=== PATIENT | female | born 1995 | race Two or more races ===

== ENCOUNTER 2025-04-12 19:58 | Inpatient (IN) ==
[2025-04-12] MEDS ORDERED: hydrALAZINE INJ 20 MG/ML VIAL IVP PRN (20:08)
[2025-04-12] MEDS ORDERED: DOCUSATE SODIUM 100 MG CAPSULE PO PRN (20:08)
[2025-04-12] MEDS ORDERED: SODIUM CHLORIDE FLUSH 0.9% 10 ML SYRINGE IVP PRN (20:08)
[2025-04-12] MEDS ORDERED: METOCLOPRAMIDE 10 MG TABLET PO PRN (20:08)
[2025-04-12] MEDS ORDERED: CARBOPROST TROMETHAMINE 250 MCG/ML VIAL IM PRN (20:08)
[2025-04-12] MEDS ORDERED: CALCIUM CARBONATE CHEW 500 MG TABLET PO PRN (20:08)
[2025-04-12] MEDS ORDERED: TERBUTALINE 1 MG/ML VIAL SUBQ PRN (20:08)
[2025-04-12] MEDS ORDERED: fentaNYL 100 MCG/2 ML VIAL IVP PRN (20:08)
[2025-04-12] MEDS ORDERED: OXYTOCIN 10 UNIT/ML VIAL IM PRN (20:08)
[2025-04-12] MEDS ORDERED: LABETALOL 20 MG/4 ML SYRINGE IVP PRN ×3 (20:08)
[2025-04-12] MEDS ORDERED: ACETAMINOPHEN 500 MG TABLET PO PRN ×2 (20:08)
--- NOTE | 2025-04-12 20:14 | HISTORY & PHYSICAL EXAMINATION ---
Admit History Smoking Status: Never smoker Other Maternal History Other Maternal History: HPI: This 29yo @ 38+3 weeks by LMP and confirmed by 13 week ultrasound presents to L&D for scheduled medical induction of labor for gestational hypertension. SVE upon admission /-2, intact, midposition, soft. Guajardo score, 8. Reviewed that risks of labor include but are not limited to section, prolonged labor, vacuum extraction, episotomy, hemorrhage, and additional risks exist re: prolonged second stage related to extraction. Reviewed back up OBGYN is available for consultations, emergency interventions and transfer of care if indicted. She has been a patient of [facility] for the duration of her . has been complicated by the third trimester onset of gestational hypertension as above as well as mild anemia improved with oral iron intake. ROS: No Headache, visual changes or right upper quadrant abdominal pain. Denies significant N/V. Denies urinary urgency or dysuria. All other symptoms reviewed and were negative except per HPI. In the event of an emergency, accepts the administration of blood products. Recent BP: 139/42 Labs: pending. Last u/s EFW: 83.7% @ FAS Total maternal weight gain: 37# In the event of an emergency, DOES ACCEPT the administration of blood products OB hx: G1: 05/23/2022; F@ 41 weeks. 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 [place] Family Hx: alcoholism, FOB (Scooter) has family hx of prader- Willi and other genetic conditions. Allergies:latex Medications: PNV, ASA LMP:07/17/24 KEVIN by LMP: 04/23/25 U/S: 10/12/2024 @ 13+2 c/w LMP Final KEVIN: 04/23/2025 Pre- weight:151 BMI: 24.3 Blood type: O NEG Rhogam at 28 wks Antibody screen: CBC:H/H/PLT- 12.8/37.5/350 Rubella:immune VZV:immune HBsAg: Negative HepC: NR RPR/AB-EIA: NR HIV:NR Flu: COVID: PAP: Obtain at 6wk PP GC/CT: Negative HSV: denies in self and partner Genetic Testing: [employer] Negative- it's A boy AFP: Ordered 11/27/2024 FAS: Placenta:anterior w/o previa Cord: 3VC XIOMY:16.6cm wnl EFW: 654g, 83.7%ile 50gm GCT: 78 TDAP: 02/06/2025 Breast Pump: has 2nd antibody screen:negative Rhogam: 02/06/2025 3rd trimester H/H PLT 10.8/33.0/255 GBS:negative Delivery plan: May consider an epidural. Physical exam: Abdomen gravid, soft, nontender. EFW 3700 FHR baseline 135, moderate variability, + accelerations, no decelerations Contractions irregular and non-painful with soft resting tone SVE 4/70/-2, vertex, intact membranes Bilateral LE's trace edema Mood is good. Assessment: 29 yo @ 38+3 weeks gestation by 13 wk U/S Medical induction of labor for gestational hypertension FHR 135 Cat I GBS NEG Plan: Admit to [facility] for MEDICAL induction of labor for gestational hypertension at term Will begin with membrane sweep followed by 25mcg misoprostol . Consulted on-call OBGYN and reviewed plan of care for induction. BP q 2 hours while awake and q 4 hours while sleeping until onset of active labor Desires unmedicated labor, discussed that if BPs are nearing severe range an epidural will be recommended, she is agreeable. Continuous monitoring Nitrous per request Epidural PRN Maternal Request. Anticipate . Meds/Allgy Home Medications Ambulatory Orders Medication Instructions Recorded Confirmed vits no.126-ferrous fum tab PO 09/14/2404/06 28 mg iron-folic acid 800 mcg tablet (Classic ) aspirin 81 mg tablet,delayed 81 mg PO QDAY 11/27/24 release (Adult Aspirin Regimen) ferrous sulfate 325 mg (65 mg 325 mg PO BID #90 tabs 0 02/05/25 04/06/25 iron) tablet breast pump #1 ea 03/21/25 04/06/25 breast pump #1 ea 03/21/25 04/06/25 blood pressure monitor #1 ea 04/06/25 04/06/25 Allergies Allergies Allergy/AdvReac Type Severity Reaction Status Date / Time Latex, Natural Rubber Allergy Mild Itching Verified 04/06/25 14:17 PFS Active Problems All Active Problems (Updated 04/12/25 @ 20:12 by SAGRARIO Loredo) 38 weeks gestation of (Acute) Gestational hypertension affecting second (Acute) screening for streptococcus B (Acute) History of induced hypertension (Acute) Elevated blood pressure reading in office without diagnosis of hypertension (Acute) Supervision of normal (Acute) Positive test (Acute) Surgical History Surgical History (Updated 09/14/24 @ 10:45 by Lani Fishman RN) H/O colposcopy with cervical biopsy Family History Family History (Updated 09/14/24 @ 10:46 by Lani Fishman RN) Father Alcoholism Uncle Alcoholism Mother High blood pressure Social History Social History (Updated 04/07/25 @ 12:19 by Allyn Alvarado CNM, SAGRARIO) Smoking Status: Never smoker Second hand tobacco smoke exposure: Yes Do you vape?: No Substance Use: cannabis (any form) Substance Use Details: stopped for Plan for Labor Plan For Labor I expect patient to be DC'd or transferred within 96 hours.: Yes Conclusion/Plan Problem List (1) History of induced hypertension: (2) Gestational hypertension affecting second : (3) 38 weeks gestation of :
[2025-04-12] MEDS ORDERED: SODIUM CHLORIDE FLUSH 0.9% 10 ML SYRINGE IVP SCH (21:00)
[2025-04-12 21:18] LABS: HCT - HEMATOCRIT 33.7 % (37.0-47.0); HGB - HEMOGLOBIN 11.6 g/dL (12.0-16.0); MEAN PLATELET VOLUME 10.4 fL (7.9-10.8); NRBC ABSOLUTE COUNT (AUTO) 0.00 x10^3/uL; NUCLEATED RED BLOOD CELLS AUTO 0.0 /100WBC; PLT - PLATELET COUNT 238 10^3/uL (130-450); RED CELL DISTRIBUTION WIDTH 12.9 % (12.0-15.0)
[2025-04-12 21:38] LABS: ALT ALANINE AMINOTRANSFERASE 13.0 IU/L (10-60); AST ASPARTATE AMINOTRANSFERASE 14.0 IU/L (10-42); BUN - BLOOD UREA NITROGEN 13.0 mg/dL (6-20); CARBON DIOXIDE - CO2 22.0 mmol/L (21-32); CREATININE 0.7 mg/dL (0.6-1.3); GFR - MDRD 98.0 (>89)
[2025-04-12 21:44] LABS: TOTAL PROTEIN,URINE TIMED 16.0 mg/dL
--- NOTE | 2025-04-13 06:42 | PROVIDER PROGRESS NOTE ---
Subjective Subjective Subjective: S: Has slept through most of the night. Not feeling pain with contractions. Supportive , Scooter sleeping in the room with her. No complaints overnight of headaches, changes to vision or RUQ pain. Denies any significant edema. Feels well informed. O: FHR baseline 135, moderate variability, + accels, - decels. Overall reassuring with moderate variability maintained throughout. SVE deferred as patient sleeping through contractions. SVE on admission 3.5/70/- 2 S/p 2 doses 25mcg BC misoprostol Contractions q2-3 minutes. Serum labs on admission unremarkable. A: 29yo @ 38+4 wks gestation Medical IOL for gestational hypertension FHR Category I GBS neg O negative Admission labs 04/13/2025: Urine MTP 0.2 (04/09/2025 - TNP) Serum creatinine 0.7 (04/09/25 - 0.6) AST: 14 (04/09/2025: 16) ALT: 13 (04/09/2025: 12) H&H: 11.6/33.7, PLT 238 (04/09/2025 - 11.4/34.4, PLT 239) Antibody positive, anti-D likely from rhogam administration P: Repeat cervical exam later this morning after patient wakes to further develop induction plan of care Hold misoprostol x 1-2 hours given regular contraction pattern. Consider AROM if appropriate Pain management per patient request Patient agreeable and desires epidural if blood pressures nearing severe range with unmedicated labor. Repeat serum lab work q 24 hours, sooner with severe features. Continuous monitoring. Induction plan reviewed with on-call OBGYN last night. Will plan to update incoming OBGYN following physician call overage change this morning. Anticipate . Current Medications Current Medications Current Medications: Current Medications Generic Name Dose Route Start Last Admin Trade Name Freq PRN Reason Stop Dose Admin Acetaminophen 1,000 mg 04/12/25 20:08 Acetaminophen 500 Mg Tablet PO Q8H PRN Mild Pain or Fever>38C(100.4F) Acetaminophen 1,000 mg 04/12/25 20:08 Acetaminophen 500 Mg Tablet PO Q8HR PRN Mild Pain or Fever>38C(100.4F) Calcium Carbonate/Glycine 1,000 mg 04/12/25 20:08 Calcium Carbonate Chew 500 Mg Tablet PO Q6HR PRN Heartburn Carboprost Tromethamine 250 mcg 04/12/25 20:08 Carboprost Tromethamine 250 Mcg/Ml Vial IM .ONCE PRN Hemorrhage Diphenhydramine HCl 25 mg 04/12/25 20:08 Diphenhydramine Inj 50 Mg/Ml Vial IVP Q6H PRN Allergy Symptoms Docusate Sodium 200 mg 04/12/25 20:08 Docusate Sodium 100 Mg Capsule PO BID PRN Constipation Fentanyl 50 mcg 04/12/25 20:08 Fentanyl 100 Mcg/2 Ml Vial IVP Q1H PRN Severe Pain (score 7-10) Hydralazine HCl 5 - 10 mg 04/12/25 20:08 Hydralazine Inj 20 Mg/Ml Vial IVP Q20M PRN SBP> or= 160 OR DBP> or= 110 Protocol Lactated Ringer's 500 mls @ 999 mls/hr 04/12/25 20:08 Lr IV PRN PRN PER PHYSICIAN ORDER Oxytocin/Sodium Chloride 500 mls @ 999 mls/hr 04/12/25 20:08 Pitocin/Sodium Chloride IV PRN PRN POST- HEMORR PREVENTION Protocol 999 MILLIUNIT/MIN Tranexamic Acid 1,000 mg in 100 mls @ 600 mls/hr 04/12/25 20:08 Tranexamic 1,000 Mg/100ml-Nacl IV Q30M PRN EBL >1200mL and within 3hr Labetalol HCl 20 mg 04/12/25 20:08 Labetalol 20 Mg/4 Ml Syringe IVP .ONCE PRN SBP> or= 160 OR DBP> or= 110 Protocol Labetalol HCl 20 - 80 mg 04/12/25 20:08 Labetalol 20 Mg/4 Ml Syringe IVP Q10M PRN SBP> or= 160 OR DBP> or= 110 Protocol Labetalol HCl 20 - 40 mg 04/12/25 20:08 Labetalol 20 Mg/4 Ml Syringe IVP Q10M PRN SBP> or= 160 OR DBP> or= 110 Protocol Lidocaine HCl 20 ml 04/12/25 20:08 Lidocaine 1% 20 Ml Mdv ID 04/15/25 20:09 .ONCE PRN PERINEAL REPAIR Metoclopramide HCl 5 mg 04/12/25 20:08 Metoclopramide 10 Mg Tablet PO Q6HR PRN Nausea / Vomiting Misoprostol 600 mcg 04/12/25 20:08 Misoprostol 200 Mcg Tablet BC .ONCE PRN Hemorrhage Misoprostol 800 mcg 04/12/25 20:08 Misoprostol 200 Mcg Tablet WI .ONCE PRN Hemorrhage Misoprostol 25 mcg 04/12/25 21:00 04/13/25 01:54 Misoprostol 100 Mcg Tablet BC 25 mcg Q4H MARINO Administration Nifedipine 10 - 20 mg 04/12/25 20:08 Nifedipine 10 Mg Capsule PO Q20M PRN SBP> or= 160 OR DBP> or= 110 Protocol Ondansetron HCl 4 mg 04/12/25 20:08 Ondansetron Odt 4 Mg Tablet PO Q4HR PRN Nausea / Vomiting Oxytocin 10 unit 04/12/25 20:08 Oxytocin 10 Unit/Ml Vial IM .ONCE PRN Step One if no IV access. Sodium Chloride 10 ml 04/12/25 21:00 Sodium Chloride Flush 0.9% 10 Ml Syringe IVP Q8H MARINO Sodium Chloride 10 ml 04/12/25 20:08 Sodium Chloride Flush 0.9% 10 Ml Syringe IVP PRN PRN NEEDED PER PROVIDER ORDERS Terbutaline Sulfate 0.25 mg 04/12/25 20:08 Terbutaline 1 Mg/Ml Vial SUBQ .ONCE PRN Tachystole Objective Lab Results 04/12/25 20:40 04/12/25 20:40 Other Labs: Lab Results x24hrs 04/12/25 04/12/25 Range/Units 20:50 20:40 WBC 9.6 (4.8-10.8) x10^3/uL RBC 3.77 L (4.20-5.40) 10^6/uL Hgb 11.6 L (12.0-16.0) g/dL Hct 33.7 L (37.0-47.0) % MCV 89.4 (81.0-99.0) fL MCH 30.8 (27.0-31.0) pg MCHC 34.4 (32.0-36.0) g/dL RDW 12.9 (12.0-15.0) % Plt Count 238 (130-450) 10^3/uL MPV 10.4 (7.9-10.8) fL Neut # (Auto) 6.5 (1.5-6.6) 10^3/uL Lymph # (Auto) 2.1 (1.5-3.5) 10^3/uL [place] # (Auto) 0.9 (0.0-1.0) 10^3/uL Eos # (Auto) 0.1 (0.0-0.7) 10^3/uL Baso # (Auto) 0.0 (0.0-0.1) 10^3/uL Absolute Nucleated RBC 0.00 x10^3/uL Nucleated RBC % 0.0 /100WBC Sodium 135 (135-145) mmol/L Potassium 4.0 (3.5-4.5) mmol/L Chloride 105 (101-111) mmol/L Carbon Dioxide 22 (21-32) mmol/L Anion Gap 8.0 (6-13) BUN 13 (6-20) mg/dL Creatinine 0.7 (0.6-1.3) mg/dL Estimated GFR (MDRD) 98 (>89) Glucose 86 (74-104) mg/dL Calcium 8.8 (8.5-10.3) mg/dL Total Bilirubin 0.3 (0.2-1.0) mg/dL AST 14 (10-42) IU/L ALT 13 (10-60) IU/L Alkaline Phosphatase 107 (42-121) IU/L Total Protein 6.5 (6.4-8.9) g/dL Albumin 3.5 (3.2-5.5) g/dL Globulin 3.0 (2.1-4.2) g/dL Albumin/Globulin Ratio 1.2 (1.0-2.2) Urine Creatinine 99.2 mg/dL Ur Total Protein Timed 16 mg/dL Protein/Creatinin Ratio 0.2 (<=0.2) Blood Type O NEGATIVE Antibody Screen POSITIVE Antibody Identification See Comments IVONNE, IgG Specific Not Reportable IVONNE, Polyspecific NEGATIVE IVONNE, C3d Specific Not Reportable Crossmatch See Detail Assessment/Plan Problem List (1) History of induced hypertension: (2) Gestational hypertension affecting second : (3) 38 weeks gestation of :
--- NOTE | 2025-04-13 12:33 | PHARMACY PROGRESS NOTE ---
Best Possible Medication History Admit Date and Time: 04/12/252014 Home Medications Medication Instructions Recorded Confirmed Type vits no.126-ferrous fum 1 tab PO DAILY 04/13/25 History 28 mg iron-folic acid 800 mcg tablet (Classic ) aspirin 81 mg tablet,delayed 81 mg PO QDAY 11/27/24 History release (Adult Aspirin Regimen) ferrous sulfate 325 mg (65 mg 325 mg PO BID #90 tabs 0 02/05/25 04/13/25 Rx iron) tablet breast pump #1 ea 03/21/25 04/06/25 Rx breast pump #1 03/21/25 04/06/25 Rx blood pressure monitor #1 04/06/25 04/06/25 Rx Processed by: Pharmacy Medications reviewed in ED?: No Medication History completed: Yes Secondary Source(s): Physician records [facility] Statement: As the person ultimately responsible for medication therapy, providers are able to order a medication from an existing home medication list in [facility] via the "Reconcile Routine" prior to Confirmation of that medication by unit support representative. Such practice is discouraged except when the physician, in their clinical judgment, deems that a medical need exists for a medication without regard to previous use.
[2025-04-13] MEDS: LACTATED RINGERS 1,000 ML IV PRN (12:53)
[2025-04-13] MEDS: ONDANSETRON ODT 4 MG TABLET PO PRN (12:59)
[2025-04-13] MEDS ORDERED: LIDOCAINE 2%-EPI 1:100000 20 ML MDV ONE (13:02)
[2025-04-13] MEDS ORDERED: ROPIVACAINE 0.2% 200 MG/100 ML BAG EP ONE (13:02)
[2025-04-13] MEDS ORDERED: PHENYLEPHRINE HCL 0.5 MG/5 ML AMPULE ONE (13:28)
[2025-04-13] MEDS ORDERED: fentaNYL 100 MCG/2 ML VIAL ONE (13:33)
[2025-04-13] MEDS ORDERED: SODIUM CHLORIDE 0.9% 10 ML VIAL ONE (13:33)
[2025-04-13] MEDS ORDERED: ONDANSETRON 4 MG/2 ML VIAL IVP PRN ×2 (14:07→15:21)
[2025-04-13] MEDS: METOCLOPRAMIDE 10 MG/2 ML VIAL IVP PRN (14:21)
[2025-04-13] MEDS ORDERED: ROPIVACAINE 0.2% 200 MG/100 ML BAG EP PRN (15:21)
[2025-04-13] MEDS ORDERED: ePHEDrine 50 MG/ML VIAL IVP PRN (15:21)
[2025-04-13] MEDS ORDERED: NALOXONE 0.4 MG/ML VIAL IVP PRN ×2 (15:21→16:35)
--- NOTE | 2025-04-13 15:21 | ANESTHESIA PROCEDURE NOTE ---
Pre-Anesthesia VS, & Labs Diagnosis Surgical Diagnosis:: Active labor Procedure Procedure: vaginal delivery Vitals Vital Signs: Temp Pulse Resp BP 36.6 C 72 16 139/92 H 04/12/25 21:13 04/12/25 21:13 04/12/25 21:13 04/12/25 21:13 NPO NPO: Other (Clear liquids during labor) Is Patient ?: Yes Lab Results Current Lab Results: Laboratory Tests 04/12/25 20:40: WBC 9.6, RBC 3.77 L, Hgb 11.6 L, Hct 33.7 L, MCV 89.4, MCH 30.8, MCHC 34.4, RDW 12.9, Plt Count 238, MPV 10.4, Neut # (Auto) 6.5, Lymph # (Auto) 2.1, [place] # (Auto) 0.9, Eos # (Auto) 0.1, Baso # (Auto) 0.0, Absolute Nucleated RBC 0.00, Nucleated RBC % 0.0, Sodium 135, Potassium 4.0, Chloride 105, Carbon Dioxide 22, Anion Gap 8.0, BUN 13, Creatinine 0.7, Estimated GFR (MDRD) 98, Glucose 86, Calcium 8.8, Total Bilirubin 0.3, AST 14, ALT 13, Alkaline Phosphatase 107, Total Protein 6.5, Albumin 3.5, Globulin 3.0, Albumin/Globulin Ratio 1.2, Blood Type O NEGATIVE, Antibody Screen POSITIVE, Antibody Identification See Comments, IVONNE, IgG Specific Not Reportable, IVONNE, Polyspecific NEGATIVE, IVONNE, C3d Specific Not Reportable, Crossmatch See Detail Lab results reviewed: Yes 04/12/25 20:40 04/12/25 20:40 Meds/Allgy Home Medications Ambulatory Orders Medication Instructions Recorded Confirmed vits no.126-ferrous fum 1 tab PO DAILY 04/13/25 28 mg iron-folic acid 800 mcg tablet (Classic ) aspirin 81 mg tablet,delayed 81 mg PO QDAY 11/27/24 release (Adult Aspirin Regimen) ferrous sulfate 325 mg (65 mg 325 mg PO BID #90 tabs 0 02/05/25 04/13/25 iron) tablet breast pump #1 ea 03/21/25 04/06/25 breast pump #1 ea 03/21/25 04/06/25 blood pressure monitor #1 ea 04/06/25 04/06/25 Allergies Allergies Allergy/AdvReac Type Severity Reaction Status Date / Time Latex, Natural Rubber Allergy Mild Itching Verified 04/06/25 14:17 PFSH Active Problems All Active Problems 38 weeks gestation of (Acute) Gestational hypertension affecting second (Acute) screening for streptococcus B (Acute) History of induced hypertension (Acute) Elevated blood pressure reading in office without diagnosis of hypertension (Acute) Supervision of normal (Acute) Positive test (Acute) Surgical History Surgical History H/O colposcopy with cervical biopsy Family History Family History (Updated 09/14/24 @ 10:46 by Lani Fishman RN) Father Alcoholism Uncle Alcoholism Mother High blood pressure Social History Social History (Updated 04/07/25 @ 12:19 by Allyn Alvarado CNM, DIRECTOR OF MANUFACTURING OPERATIONS) Smoking Status: Never smoker Second hand tobacco smoke exposure: Yes Do you vape?: No Substance Use: cannabis (any form) Substance Use Details: stopped for Anesthesia Exam (Expanded) Exam General: Alert, Oriented x3 and Cooperative Dental: WNL Mouth Openin Fingerbreadth Neck Mobility: Normal Mallampati classification: II Thyromental Distance: 4-6 cm Plan Plan Anesthesia Type: Epidural Consent for Procedure(s) Verified and Reviewed: Yes Code Status: Attempt Resuscitation ASA Classification ASA classification: 2-Mild systemic disease Is this case an emergency?: No
[2025-04-13] MEDS: OXYTOCIN/SODIUM CHLORIDE 500 ML IV PRN (15:54)
--- NOTE | 2025-04-13 16:25 | DELIVERY NOTE ---
Delivery Note Delivery Comments (Free Text/Narrative) Delivery Comments (Free Text/Narrative): This [age] -year-old, @ 38+4 weeks gestation presented 04/12/2025 @ 1999 for medical induction of labor for gestational hypertension. Cervix was 4cm and Vertex presentation by cassidy's. Guajardo score 8. GBS negative. Misoprostol [id number]. FHR pattern demonstrated 140 baseline in a category I prior to second stage. Normal labor course. Epidural placed upon maternal request. AROM occurred 04/13/2025 @ 0846. She then progressed to complete/complete and active second stage began @ 1526. : Normal spontaneous vaginal delivery of a viable male on 04/13/2025 @ 1550. True knot in cord. The was placed on maternal abdomen, stimulated, dried and placed skin to skin. Apgars 9 & 10 @ 1 & 5 minutes. The umbilical cord was allowed to stop pulsating at which time it was doubly clamped by delivering provider and cut by FOB. 3VC. Cord blood was obtained. Fundal massage and gently cord traction applied for active management of the third stage, placenta delivered spontaneously and intact and appeared normal @ 1600. EBL 200cc. Placenta was not sent to pathology. Pitocin administered via IV for hemostasis and allowed to run freely. Uterine massage was performed until uterus was deemed firm. weight pending at this time. Inspection of the perineum noted to be intact. Upon re-inspection the patient was hemostatic. Uterus again massaged and found to be firm. Needle and sponge counts were correct. Uterine fundus firm and there is no excessive bleeding. Tissues well approximated. Skin to skin initiated. Family bonding well. Both mother and baby are in stable condition. If blood pressures normotensive for the the first 6 hours will hold on original plan for CBC & CMP later tonight.
[2025-04-13] MEDS ORDERED: SIMETHICONE CHEW 80 MG TABLET PO PRN (16:35)
[2025-04-13] MEDS ORDERED: hydrALAZINE INJ 20 MG/ML VIAL IVP PRN ×2 (16:35)
[2025-04-13] MEDS ORDERED: OXYTOCIN/SODIUM CHLORIDE 500 ML IV PRN (16:35)
[2025-04-13] MEDS ORDERED: LABETALOL 5 MG/1 ML 20 ML MDV IVP PRN (16:35)
[2025-04-13] MEDS ORDERED: LABETALOL 20 MG/4 ML SYRINGE IVP PRN ×2 (16:35)
[2025-04-13] MEDS: TRANEXAMIC ACID IN NACL 1,000 MG/100 ML BAG IV PRN (16:49)
[2025-04-13] MEDS ORDERED: DOCUSATE SODIUM 100 MG CAPSULE PO SCH (21:00)
[2025-04-13] MEDS: ACETAMINOPHEN 500 MG TABLET PO PRN (23:31)
[2025-04-13] MEDS: IBUPROFEN 600 MG TABLET PO PRN (23:31)
[2025-04-14 08:02] LABS: HCT - HEMATOCRIT 33.0 % (37.0-47.0); HGB - HEMOGLOBIN 11.4 g/dL (12.0-16.0); MEAN PLATELET VOLUME 10.8 fL (7.9-10.8); NRBC ABSOLUTE COUNT (AUTO) 0.00 x10^3/uL; NUCLEATED RED BLOOD CELLS AUTO 0.0 /100WBC; PLT - PLATELET COUNT 198 10^3/uL (130-450); RED CELL DISTRIBUTION WIDTH 12.9 % (12.0-15.0)
[2025-04-14 08:14] LABS: ALT ALANINE AMINOTRANSFERASE 12.0 IU/L (10-60); AST ASPARTATE AMINOTRANSFERASE 16.0 IU/L (10-42); BUN - BLOOD UREA NITROGEN 7.0 mg/dL (6-20); CARBON DIOXIDE - CO2 25.0 mmol/L (21-32); CREATININE 0.7 mg/dL (0.6-1.3); GFR - MDRD 98.0 (>89)
--- NOTE | 2025-04-14 11:55 | Discharge Summary ---
Discharge Summary HPI History of Present Illness: Cinthya King is a 29-year-old female at 38 weeks and 3 days gestation who was admitted on 04/04/2025 for medical induction of labor due to gestational hypertension. She delivered a viable male on 04/12/2025 via normal spontaneous vaginal delivery with an intact perineum. The 's scores were 9 and 10 at one and five minutes respectively, with a weight of 3543 grams. A true knot was noted in the umbilical cord. During labor, Cinthya received an epidural for pain relief. Her total quantitative blood loss (QBL) including 2 hours was 500 cc, which was near the threshold for hemorrhage. She received one dose of tranexamic acid (TXA) and 30 units of Pitocin for increased bleeding, as well as a vaginal sweep, her bleeding then slowed significantly. Cinthya's course has been generally uncomplicated. She is now on day one and reports her bleeding is minimal, comparable to the first day of her menstrual period. She denies headaches, vision changes, or right upper quadrant pain. Minimal trace edema is noted in her extremities. Cinthya is ambulating, tolerating a regular diet, and urinating without difficulty. Her pain is well-controlled without narcotic pain management. She is well and bonding with her , supported by her family. Cinthya feels well and comfortable going home today. She denies feeling dizzy or lightheaded. Her blood pressures have been monitored closely due to her history of gestational hypertension, with the most recent reading at 134/86. Medications and Supplements - Ibuprofen by mouth as needed for pain. - Tylenol by mouth as needed for pain. - Stool softeners as needed. - TXA (Tranexamic acid): Received 1 dose for increased bleeding. - Pitocin: Received 30 units for increased bleeding. - Epidural for pain relief during labor. Review of Systems General: Negative for fever, chills, fatigue. HEENT: Negative for headaches, vision changes. Cardiovascular: Negative for dizziness, lightheadedness. Gastrointestinal: Negative for right upper quadrant pain. Positive for passing gas. Negative for bowel movement. Genitourinary: Positive for voiding without difficulty Musculoskeletal: Positive for minimal trace edema in extremities. Blood Pressures: 134/86 mmHg (04/14/2025 at 0908) 127/80 mmHg (04/14/2025 at 0500) 133/87 mmHg (04/13/2025 at 2336) 141/81 mmHg (04/13/2025 at 2147) 121/76 mmHg (04/13/2025 at 1800) 127/79 mmHg (04/13/2025 at 1745) 136/74 mmHg (04/13/2025 at 1730) Physical Examination General: Minimal trace edema in extremities. Abdomen: Fundus firm below the umbilicus. Bleeding minimal, like the first day of her period. Laboratory, Imaging, and Diagnostic Test Results - Date: 04/14/2025 - CMP: Creatinine 0.7, AST 16, ALT 12 - CBC: Hemoglobin 11.4 g/dL, Hematocrit 33.0%, Platelets 198 - Date: 04/04/2025 (Admission) - Urine PCR: 0.2 - GBS: Negative - Rh: Negative - Date: 04/13/2025 - Total QBL: 500 cc (within 2 hours ) - Previous results: - Ultrasound (13 weeks gestation): Confirmed gestational age - Blood type (mother): O-negative - Blood type (baby): O-negative - Varicella: Reactive immune - Rubella: Immune Cinthya King, 29-year-old female, admitted on 04/04/2025 at 38+3 weeks gestation for medical induction of labor due to gestational hypertension, delivered on 04/12/2025, now on day one. status post normal spontaneous vaginal delivery Assessment: Patient delivered a viable male on 04/12/2025 following medical induction of labor for gestational hypertension. Delivery was uncomplicated with an intact perineum. Total quantitative blood loss (QBL) was 500 cc, which is at the threshold for hemorrhage. Patient received 1 dose of tranexamic acid (TXA) and 30 units of Pitocin for increased bleeding, which then slowed significantly. Current bleeding is reported as minimal, similar to the first day of her menstrual period. Patient is ambulating, tolerating regular diet, and urinating without difficulty. Pain is well- controlled without narcotic pain management. Fundus is firm and below the umbilicus. Patient denies headaches, vision changes, or right upper quadrant pain. Minimal trace edema noted in extremities. Plan: - Discharge home today ( day one) - Encourage use of ibuprofen, Tylenol, and stool softeners as needed - Follow-up appointment scheduled for 04/19/2025 at 1330 at [facility] for OB follow-up and care - Provided precautions: call if experiencing fevers, chills, abdominal pain, increasing bleeding, or foul-smelling vaginal discharge - Provided preeclampsia precautions - Continue to monitor blood pressures Gestational hypertension Assessment: Patient was admitted for medical induction of labor due to gestational hypertension. Recent blood pressure readings have been variable, with some elevated readings (e.g., 141/81 on 04/13/2025 at 2147). However, the most recent reading on 04/14/2025 at 0908 was 134/86, showing improvement. Urine gaspnhd-rx-fskpwshvux ratio (PCR) on admission was 0.2, indicating no significant proteinuria. Patient denies symptoms of severe preeclampsia such as headaches, vision changes, or right upper quadrant pain. Plan: - Continue blood pressure monitoring - Provided preeclampsia precautions - Follow-up appointment scheduled for 04/19/2025 at 1330 in person for visit and BP check. Rh-negative status Assessment: Patient's blood type is O-negative, and the baby's blood type is also O-negative. Plan: - No Rhogam administration required due to Rh compatibility between mother and infant Patient's most recent hemoglobin is 11.4 g/dL and hematocrit is 33.0%, minimal change from admission H&H. Total quantitative blood loss during delivery and immediate period was 500 cc. Patient denies feeling dizzy or lightheaded. Assessment: Patient reports well and bonding with the . She is supported by family. Had a poor experince following the delivery of her first born, hopeful for a good experience this round. Plan: - Continue to encourage and support - Address any concerns at follow-up appointment ALLERGIES Allergies Allergy/AdvReac Type Severity Reaction Status Date / Time Latex, Natural Rubber Allergy Mild Itching Verified 04/06/25 14:17 MEDICATIONS Ambulatory Orders Medication Instructions Recorded Confirmed vits no.126-ferrous fum 1 tab PO DAILY 04/13/25 28 mg iron-folic acid 800 mcg tablet (Classic ) ferrous sulfate 325 mg (65 mg 325 mg PO BID #90 tabs 0 02/05/25 04/13/25 iron) tablet breast pump #1 ea 03/21/25 04/06/25 breast pump #1 ea 03/21/25 04/06/25 blood pressure monitor #1 ea 04/06/25 04/06/25 PHYSICAL EXAM AT DISCHARGE Vital Signs: Vital Signs x48h Temp Pulse Resp BP Pulse Ox 04/14/25 09:08 36.5 C 95 18 134/86 H 95 04/14/25 05:00 36.8 C 81 16 127/80 98 LABS 04/14/25 07:36 04/14/25 07:36 Discharge Plan Discharge Patient Disposition: 01 Home, Self Care Medically Cleared Date:: 04/14/25 Prescriptions: Continued ferrous sulfate 325 mg (65 mg iron) tablet 325 mg PO BID Qty: 90 4RF (DME) breast pump Device See Rx Instructions .Route Qty: 1 0RF Rx Instructions: Dispense 1 standard double electric breast pump (E0603) plus accessories. ICD10- Z39.1 Length of need: 12mo (DME) breast pump Device See Rx Instructions .Route Qty: 1 0RF Rx Instructions: As directed (DME) blood pressure monitor Kit See Rx Instructions .Route Qty: 1 0RF Rx Instructions: Take blood pressure 3 times daily as directed and log values Classic 28 mg iron- 800 mcg tablet 1 tab PO DAILY Discontinued aspirin [Adult Aspirin Regimen] 81 mg tablet,delayed release (DR/EC) 81 mg PO QDAY Print Language: Israeli Patient Instructions: After a Vaginal , Holds, Breastfeed Common Questions, : Caring for Yourself, - Latch On Follow-up Care: Rachna Arellano ARNP [Primary Care Provider, Obstetrics/Gynecology]
[2025-04-14 14:36] VITALS: TEMP 97.7
[2025-04-14 17:55] VITALS: BP 127/94; O2SAT 95
--- NOTE | 2025-04-14 18:58 | Labor Flowsheet ---
Labor Flowsheet Datetime Report Generated by CPN: 04/14/2025 18:58 Datetime: 04/14/2025 17:55 Pulse: 94 SpO2 (%): 94 Datetime: 04/14/2025 17:54 VITAL SIGNS NBP Sys/Marisela/Mean (mmHg): 127 : 94 : 102 Datetime: 04/13/2025 18:01 Respirations: 18 Temperature Route: Oral PAIN Pain Scale: 0 Datetime: 04/13/2025 16:33 Membranes Ruptured Date/Time: 04/13/2025 08:46 Amniotic Fluid Odor: None Datetime: 04/13/2025 16:00 Stage of : Recovery Datetime: 04/13/2025 15:50 UTERINE ACTIVITY Monitor Mode: External Frequency (min): 1.5-3 Quality: Strong Duration (sec): 60 Pattern: Normal: <= 5 Contractions in 10 Minutes Resting Tone (Palpate): Relaxed ASSESSMENT A Monitor Mode: Telemetry FHR Baseline Rate : 130 FHR Baseline Changes: No Baseline Change Variability: Moderate 6-25 bpm Decelerations: Early; Variable Datetime: 04/13/2025 15:30 Accelerations: 15X15 LaborFlag: Labor Datetime: 04/13/2025 15:26 STAGE 2 Pushing Position: Pushing with Contractions Datetime: 04/13/2025 15:00 Temperature (C): 36.6 Category: Category I Datetime: 04/13/2025 14:30 Monitor Interventions for UA: [place] Adjusted Datetime: 04/13/2025 14:25 I/O Interventions: [place] Cath Inserted Datetime: 04/13/2025 13:18 PATIENT CARE Patient Position/Activity: Semi-Fowlers Datetime: 04/13/2025 13:17 ANESTHESIA Anesthesia Plans: Epidural Epidural Procedure: Test Dose Datetime: 04/13/2025 13:13 PROCEDURE TIME OUT Procedure Verify: Correct Patient Identity; Correct Side and Site are Marked; Accurate Procedure Consent Form; Agreement on Procedure to be Done; Correct Patient Position; Relevant Images and Results are Properly Labeled and Displayed; Addressed Need to Administer Antibiotics or Fluids for Irrigation; Safety Precautions Based on Patient History or Medication Use Epidural Positioning: Sitting Anesthesia Comments: procedure start Datetime: 04/13/2025 13:08 Patient Care Comments: pt sitting up for epidural placement Datetime: 04/13/2025 12:47 VAGINAL EXAM Dilatation (cm): 6.0 Effacement (%): 80 Station: -2 Exam by: Rachna Do CNM Datetime: 04/13/2025 12:00 Contraction Comments: occasional doubling/tripling Datetime: 04/13/2025 09:55 Pain Type: Contraction Pain Location: Abdomen Comfort Measures: Breathing/Relaxation Datetime: 04/13/2025 09:10 Monitor Interventions for FHR: Ultrasound Adjusted COMMUNICATION Communication: RN at Bedside; RN Reviewed Strip Datetime: 04/13/2025 09:05 Comments: Audible maternal tracing. Patient sitting on toilet as she doesn't like the sensation of a pad wet w/ amniotic fluid. Datetime: 04/13/2025 08:46 Membrane Status: Ruptured Membranes Rupture Method: Artificial Amniotic Fluid Color: Clear Amniotic Fluid Amount: Moderate Datetime: 04/13/2025 07:26 Pain Presence: Intermittent Datetime: 04/13/2025 01:54 MEDICATIONS Cervical Ripening Agents: Cytotec @ Datetime: 04/13/2025 01:48 Cervix, Consistency: Soft Cervix, Position: Midposition Vaginal Exam Comments: unchanged Datetime: 04/12/2025 20:45 Communication Comments: provider @bedside signing consents and discussing POC Datetime: 04/12/2025 20:20 MATERNAL ASSESSMENT Level of Consciousness: Alert Headache: Denies Nausea/Vomiting: Denies RUQ Epigastric Pain: Denies
== END 2025-04-14 18:25 | disposition home or self-care (01) | DRG 807 ==
LOC: WFO 19:58 → FBP 20:02
PROVIDERS: ADMIT Nurse Practitioner; ATTEND Nurse Practitioner

== ENCOUNTER 2025-04-19 21:19 | Inpatient (IN) ==
--- NOTE | 2025-04-19 21:36 | ED Physician Documentation ---
History of Present Illness Stated complaint Stated Complaint: HBP Chief complaint Chief Complaint: General History obtained from History obtained from: Patient Additonal information Additional information: with history of preeclampsia with first and hypertension with the second. She has been taking labetalol with increasing blood pressures at home. She had a telehealth consultation today and labs were done today with unremarkable CBC, CMP, and protein creatinine ratio in the urine of 0.1. Because her blood pressures been going up she has been increasing her labetalol dosing, taking about 100 mg every 3 hours. Despite that prior to arrival saw blood pressures of about 170/115 at home. She has no headache, no flashers or floaters. No nausea. No chest pain. She does feel anxious. Meds/Allgy Home Medications Ambulatory Orders Medication Instructions Recorded Confirmed vits no.126-ferrous fum 1 tab PO DAILY 04/17/25 28 mg iron-folic acid 800 mcg tablet (Classic ) ferrous sulfate 325 mg (65 mg 325 mg PO BID #90 tabs 0 02/05/25 04/17/25 iron) tablet breast pump #1 03/21/25 04/17/25 breast pump #1 03/21/25 04/17/25 blood pressure monitor #1 04/06/25 04/17/25 labetalol 100 mg tablet 100 mg PO BID #60 tabs 04/1704/17/25 Allergies Allergies Allergy/AdvReac Type Severity Reaction Status Date / Time Latex, Natural Rubber Allergy Mild Itching Verified 04/19/25 21:30 PFSH Active Problems All Active Problems (Updated 04/19/25 @ 22:38 by Julio Alexander MD) Hypertension, condition or complication (Acute) Gestational hypertension affecting second (Acute) screening for streptococcus B (Acute) History of induced hypertension (Acute) Elevated blood pressure reading in office without diagnosis of hypertension (Acute) Supervision of normal (Acute) Positive test (Acute) Surgical History Surgical History H/O colposcopy with cervical biopsy Family History Family History (Updated 09/14/24 @ 10:46 by Lani Fishman RN) Father Alcoholism Uncle Alcoholism Mother High blood pressure Social History Social History (Updated 04/07/25 @ 12:19 by Allyn Alvarado CNM, [place]) Smoking Status: Never smoker Second hand tobacco smoke exposure: Yes Do you vape?: No Do you feel safe in your home environment?: Yes History of physical, verbal, emotional, or financial abuse?: No Substance Use: cannabis (any form) Substance Use Details: stopped for POLST Patient has POLST: No Exam Exam Vital Signs: Vital Signs x48h Temp Pulse Resp BP Pulse Ox 04/19/25 22:14 91 152/109 H 04/19/25 21:53 64 175/111 H 98 04/19/25 21:25 36.5 C 71 18 190/120 H 95 Constitutional normal general appearance and no apparent distress Eyes PERRL and EOMs intact bilaterally Respiratory breath sounds equal bilaterally, normal respiratory effort and clear to auscultation bilaterally Cardiovascular normal heart rate noted, regular rhythm noted and no murmur Gastrointestinal abdomen soft to palpation and nontender to palpation Psychiatry oriented x3 Results Vitals Vitals: Vital Signs - 24 hr 04/19/25 21:25 04/19/25 21:53 04/19/25 22:14 Temperature 36.5 C Temperature Source Temporal Artery Scan Pulse Rate 71 64 91 Respiratory Rate 18 Blood Pressure 190/120 H 175/111 H 152/109 H O2 Saturation 95 98 O2 Source Room air Pain Intensity 0 Oxygen O2 Source Room air PD Medical Decision Making ED course ED course: 29-year-old woman who is 6 days has severe level blood pressures. Normal protein creatinine ratio earlier today. Spoke with Dr. Worley after initial evaluation who recommends 10 mg of hydralazine and blood pressure recheck with likely admission. After the first dose of hydralazine she was still quite hypertensive and the 10 mg of hydralazine was repeated. Dr. Worley came to the bedside and plans to admit. Discharge Plan Discharge Patient Disposition: ED Place in Observation Condition: Serious Clinical Impression: Hypertension, condition or complication Prescriptions: No Action ferrous sulfate 325 mg (65 mg iron) tablet 325 mg PO BID Qty: 90 4RF (DME) breast pump Device See Rx Instructions .Route Qty: 1 0RF Rx Instructions: Dispense 1 standard double electric breast pump (E0603) plus accessories. ICD10- Z39.1 Length of need: 12mo (DME) breast pump Device See Rx Instructions .Route Qty: 1 0RF Rx Instructions: As directed (DME) blood pressure monitor Kit See Rx Instructions .Route Qty: 1 0RF Rx Instructions: Take blood pressure 3 times daily as directed and log values Classic 28 mg iron- 800 mcg tablet 1 tab PO DAILY labetalol 100 mg tablet 100 mg PO BID Qty: 60 2RF Print Language: Venezuelan Stand Alone Forms: PCP List
[2025-04-19] MEDS: hydrALAZINE INJ 20 MG/ML VIAL IVP STA ×2 (21:56→22:40)
[2025-04-19] MEDS ORDERED: CALCIUM CARBONATE CHEW 500 MG TABLET PO PRN (22:25)
[2025-04-19] MEDS: ONDANSETRON ODT 4 MG TABLET TL PRN (23:07)
--- NOTE | 2025-04-19 23:23 | HISTORY & PHYSICAL EXAMINATION ---
History of Present Illness History of Present Illness HPI Comment/Other: Cinthya King is a 29 yo who is PPD#6 s/p (IOL for gestational hypertension), who is being admitted from the ED for observation for blood pressure management. Cinthya was started on labetalol 100mg BID at visit on 04/17. She discussed increased blood pressures with CNM overnight the evening prior and was instructed to take additional labetalol. Cinthya was directed to the ED today, however, there was a delay due to transportation issues. Cinthya has dosed herself today approximately every 3 hours, taking a total of 800mg labetalol over the last approximately 15 hours. Reports at home, her blood pressures just kept increasing throughout the day. She did complete outpatient labs today which did not show any evidence of preeclampsia. She denies [place], thought she might have had a spot or two in her vision but not persistent, denies upper abdominal pain. Reports vaginal bleeding is light. Denies current CP, SOB. Denies LE swelling. Reports anxiety due to the high blood pressures. She is . In the ED, received two doses of IV hydralazine with improvement in BPs to mild range. O: Gen: NAD CV: RRR Pulm: CTAB, no crackles Abd: soft, non tender, no rebound/guarding Ext: no LE edema, no evidence of DVT Labs: pr:cr ratio, CBC, CMP from this afternoon reviewed. A/P: Cinthya is a 29 yo who is PPD#6 s/p , induced for gestational hypertension, who presents with severe gestational hypertension: - Plan for admission for titration of antihypertensives. Received 2 doses of IV hydralazine in the ED with good response. - Preeclampsia labs normal and currently without neurological symptoms of preeclampsia, so we discussed deferring magnesium sulfate for seizure prophyalxis. - Will continue labetalol, increase to 400mg every 8 hours. Will add nifedipine 30mg daily to start in the morning (holding for now given tachycardia after receiving IV hydralazine). Yanci Worley MD Meds/Allgy Home Medications Ambulatory Orders Medication Instructions Recorded Confirmed vits no.126-ferrous fum 1 tab PO DAILY 04/17/25 28 mg iron-folic acid 800 mcg tablet (Classic ) ferrous sulfate 325 mg (65 mg 325 mg PO BID #90 tabs 0 02/05/25 04/17/25 iron) tablet breast pump #1 ea 03/21/25 04/17/25 breast pump #1 ea 03/21/25 04/17/25 blood pressure monitor #1 ea 04/06/25 04/17/25 labetalol 100 mg tablet 100 mg PO BID #60 tabs 04/1704/17/25 Allergies Allergies Allergy/AdvReac Type Severity Reaction Status Date / Time Latex, Natural Rubber Allergy Mild Itching Verified 04/19/25 21:30 PFSH Active Problems All Active Problems (Updated 04/19/25 @ 22:38 by Julio Alexander MD) screening for streptococcus B (Acute) Elevated blood pressure reading in office without diagnosis of hypertension (Acute) Gestational hypertension affecting second (Acute) History of induced hypertension (Acute) Hypertension, condition or complication (Acute) Positive test (Acute) Supervision of normal (Acute) Surgical History Surgical History H/O colposcopy with cervical biopsy Family History Family History (Updated 09/14/24 @ 10:46 by Lani Fishman RN) Father Alcoholism Uncle Alcoholism Mother High blood pressure Social History Social History (Updated 04/07/25 @ 12:19 by Allyn Alvarado CNM, [employer]) Smoking Status: Never smoker Second hand tobacco smoke exposure: Yes Do you vape?: No Do you feel safe in your home environment?: Yes History of physical, verbal, emotional, or financial abuse?: No Substance Use: cannabis (any form) Substance Use Details: stopped for POLST Patient has POLST: No Exam Exam Vital Signs: Vital Signs x48h Temp Pulse Resp BP Pulse Ox 04/19/25 22:45 114 H 142/90 H 04/19/25 22:30 103 H 150/100 H 04/19/25 22:14 91 152/109 H 04/19/25 21:53 64 175/111 H 98 04/19/25 21:25 97.7 F 71 18 190/120 H 95
[2025-04-20] MEDS: LABETALOL 100 MG TABLET PO SCH (01:03)
[2025-04-20] MEDS: NIFEdipine ER 30 MG TABLET PO SCH (06:24)
[2025-04-20] MEDS ORDERED: ACETAMINOPHEN 650 MG SUPP PR PRN (07:19)
[2025-04-20] MEDS: ACETAMINOPHEN 325 MG TABLET PO PRN (09:22)
[2025-04-20 09:32] LABS: HCT - HEMATOCRIT 35.9 % (37.0-47.0); HGB - HEMOGLOBIN 12.1 g/dL (12.0-16.0); MEAN PLATELET VOLUME 9.2 fL (7.9-10.8); NRBC ABSOLUTE COUNT (AUTO) 0.00 x10^3/uL; NUCLEATED RED BLOOD CELLS AUTO 0.0 /100WBC; PLT - PLATELET COUNT 333 10^3/uL (130-450); RED CELL DISTRIBUTION WIDTH 12.7 % (12.0-15.0)
[2025-04-20 09:59] LABS: ALT ALANINE AMINOTRANSFERASE 21.0 IU/L (10-60); AST ASPARTATE AMINOTRANSFERASE 12.0 IU/L (10-42); BUN - BLOOD UREA NITROGEN 12.0 mg/dL (6-20); CARBON DIOXIDE - CO2 27.0 mmol/L (21-32); CREATININE 0.7 mg/dL (0.6-1.3); GFR - MDRD 98.0 (>89)
--- NOTE | 2025-04-20 11:31 | PHARMACY PROGRESS NOTE ---
Best Possible Medication History Admit Date and Time: 04/19/25 [id number] Home Medications Medication Instructions Recorded Confirmed Type vits no.126-ferrous fum 1 tab PO DAILY 04/20/25 History 28 mg iron-folic acid 800 mcg tablet (Classic ) ferrous sulfate 325 mg (65 mg 325 mg PO BID #90 tabs 0 02/05/25 04/20/25 Rx iron) tablet breast pump #1 ea 03/21/25 04/17/25 Rx breast pump #1 03/21/25 04/17/25 Rx blood pressure monitor #1 04/06/25 04/17/25 Rx labetalol 100 mg tablet 400 mg PO TID 04/20/2504/20 History Processed by: Pharmacy (pharmacy general managerClay) Medications reviewed in ED?: No Medication History completed: Yes Patient Interview: Completed Secondary Source(s): Insurance records [facility] Statement: As the person ultimately responsible for medication therapy, providers are able to order a medication from an existing home medication list in [facility] via the "Reconcile Routine" prior to Confirmation of that medication by application support lead. Such practice is discouraged except when the physician, in their clinical judgment, deems that a medical need exists for a medication without regard to previous use.
[2025-04-20] MEDS ORDERED: SODIUM CHLORIDE FLUSH 0.9% 10 ML SYRINGE IVP PRN (11:57)
[2025-04-20] MEDS ORDERED: LABETALOL 20 MG/4 ML SYRINGE IVP PRN ×3 (11:57)
[2025-04-20] MEDS ORDERED: hydrALAZINE INJ 20 MG/ML VIAL IVP PRN ×2 (11:57)
[2025-04-20] MEDS ORDERED: SODIUM CHLORIDE FLUSH 0.9% 10 ML SYRINGE IVP SCH (12:00)
[2025-04-20] MEDS ORDERED: CALCIUM GLUC 1,000MG/50ML-NACL 1,000 MG/50 ML BAG IV PRN (12:02)
--- NOTE | 2025-04-20 12:10 | PROVIDER PROGRESS NOTE ---
Subjective Prog Note Date Prog Note Date: 04/20/25 Prog Note Time: 12:06 Subjective Pt reports feeling: No change Subjective: HD #2 s/p admission for HTN late last evening. She was sent to the ER for persistent HTN despite patient's attempts to manage with PO Labetalol at home. She had 2 severe-range BP's in the ER and received hydralazine followed by improved BP. She was subsequently started on Labetalol 400 mg tid. Overnight, her initial DTRs seemed hyper-reflexic w/ clonus present, then repeat was wnl per RN this morning. She has had a mild RUTHERFORD with no visual changes, and preE labs yesterday were wnl. This morning, she continues to have a mild RUTHERFORD despite Tylenol 650 mg. Her is at the bedside and is , and her mother is present to help with care. She denies current concerns but is concerned about how she responded to DTR's/clonus check last night (experienced some global shaking after the exam) and potential ongoing neural irritability sx and risk of seizure. Current Medications Current Medications Current Medications: Current Medications Generic Name Dose Route Start Last Admin Trade Name Freq PRN Reason Stop Dose Admin Acetaminophen 650 mg 04/20/25 09:06 04/20/25 09:22 Acetaminophen 325 Mg Tablet PO 650 mg Q4HR PRN Administration Pain or Fever > 38C (100.4F) Calcium Carbonate/Glycine 1,000 mg 04/19/25 22:25 Calcium Carbonate Chew 500 Mg Tablet PO Q6HR PRN Heartburn Hydralazine HCl 10 mg 04/20/25 11:57 Hydralazine Inj 20 Mg/Ml Vial IVP .ONCE PRN SBP> or= 160 OR DBP> or= 110 Hydralazine HCl 5 - 10 mg 04/20/25 11:57 Hydralazine Inj 20 Mg/Ml Vial IVP Q20M PRN SBP> or= 160 OR DBP> or= 110 Protocol Lactated Ringer's 1,000 mls @ 75 mls/hr 04/20/25 12:00 Lr IV .[id number] MARINO Magnesium Sulfate 4 gm in 50 mls @ 100 mls/hr 04/20/25 11:57 Magnesium Sulfate IV 04/20/25 12:26 ONCE ONE Magnesium Sulfate 20 gm in 500 mls @ 50 mls/hr 04/20/25 12:00 Magnesium Sulf 20 G/500 Ml Bag IV .Q10H MARINO CALCIUM GLUC 1,000MG/50ML-NACL 1,000 mg in 50 mls @ 200 mls/hr 04/20/25 12:02 Calcium Gluc 1,000mg/50ml-Nacl IV PRN PRN Mag toxicity Ibuprofen 600 mg 04/20/25 07:19 Ibuprofen 600 Mg Tablet PO Q6HR PRN pain Labetalol HCl 400 mg 04/19/25 23:45 04/20/25 09:23 Labetalol 100 Mg Tablet PO 400 mg TID MARINO Administration Labetalol HCl 20 mg 04/20/25 11:57 Labetalol 20 Mg/4 Ml Syringe IVP .ONCE PRN SBP> or= 160 OR DBP> or= 110 Labetalol HCl 20 - 80 mg 04/20/25 11:57 Labetalol 20 Mg/4 Ml Syringe IVP Q10M PRN SBP> or= 160 OR DBP> or= 110 Protocol Labetalol HCl 20 - 40 mg 04/20/25 11:57 Labetalol 20 Mg/4 Ml Syringe IVP Q10M PRN SBP> or= 160 OR DBP> or= 110 Protocol Nifedipine 10 - 20 mg 04/20/25 11:57 Nifedipine 10 Mg Capsule PO Q20M PRN SBP> or= 160 OR DBP> or= 110 Protocol Ondansetron HCl 4 mg 04/19/25 22:25 04/19/25 23:07 Ondansetron Odt 4 Mg Tablet TL 4 mg Q4HR PRN Administration Nausea / Vomiting Sodium Chloride 10 ml 04/20/25 12:00 Sodium Chloride Flush 0.9% 10 Ml Syringe IVP Q8H ON LICENSE OF [facility] Sodium Chloride 10 ml 04/20/25 11:57 Sodium Chloride Flush 0.9% 10 Ml Syringe IVP PRN PRN NEEDED PER PROVIDER ORDERS Objective Vital Signs/Intake & Output Reviewed Vital Signs: Yes Vital Signs: Vital Signs x48h Temp Pulse Resp BP Pulse Ox 04/20/25 10:00 36.8 C 95 118/81 04/20/25 09:25 85 16 124/85 04/20/25 08:04 101 H 16 118/81 97 04/20/25 06:00 92 18 118/80 96 Intake & Output: Intake & Output 09/0204/18/25 04/19/25 04/20/25 23:59 23:59 23:59 23:59 Intake Total 175 / 175 Balance 175 / 175 Weight (kg) 76 kg 76 kg Objective General Appearance: positive No acute distress and Alert Eyes Bilateral: positive Normal inspection Neck: positive Nml inspection Respiratory: positive No respiratory distress and Breath sounds nml Cardiovascular: positive Regular rate & rhythm Abdomen: positive Non-tender Skin: positive Color nml and Warm Extremities: positive Non-tender, Full ROM and No pedal edema Neurologic/Psychiatric: positive Oriented x3 and Mood/affect nml Reflexes: Bicep (R): 3+, Knee (R): 3+ and Knee (L): 3+ Lab Results 04/20/25 09:20 04/20/25 09:20 Other Labs: Lab Results x24hrs 04/20/25 Range/Units 09:20 WBC 9.9 (4.8-10.8) x10^3/uL RBC 3.93 L (4.20-5.40) 10^6/uL Hgb 12.1 (12.0-16.0) g/dL Hct 35.9 L (37.0-47.0) % MCV 91.3 (81.0-99.0) fL MCH 30.8 (27.0-31.0) pg MCHC 33.7 (32.0-36.0) g/dL RDW 12.7 (12.0-15.0) % Plt Count 333 (130-450) 10^3/uL MPV 9.2 (7.9-10.8) fL Neut # (Auto) 7.0 H (1.5-6.6) 10^3/uL Lymph # (Auto) 2.0 (1.5-3.5) 10^3/uL [place] # (Auto) 0.8 (0.0-1.0) 10^3/uL Eos # (Auto) 0.1 (0.0-0.7) 10^3/uL Baso # (Auto) 0.0 (0.0-0.1) 10^3/uL Absolute Nucleated RBC 0.00 x10^3/uL Nucleated RBC % 0.0 /100WBC Sodium 138 (135-145) mmol/L Potassium 3.8 (3.5-4.5) mmol/L Chloride 106 (101-111) mmol/L Carbon Dioxide 27 (21-32) mmol/L Anion Gap 5.0 L (6-13) BUN 12 (6-20) mg/dL Creatinine 0.7 (0.6-1.3) mg/dL Estimated GFR (MDRD) 98 (>89) Glucose 84 (74-104) mg/dL Calcium 9.1 (8.5-10.3) mg/dL Total Bilirubin 0.3 (0.2-1.0) mg/dL AST 12 (10-42) IU/L ALT 21 (10-60) IU/L Alkaline Phosphatase 79 (42-121) IU/L Total Protein 6.4 (6.4-8.9) g/dL Albumin 3.5 (3.2-5.5) g/dL Globulin 2.9 (2.1-4.2) g/dL Albumin/Globulin Ratio 1.2 (1.0-2.2) Assessment/Plan Problem List (1) Pre-eclampsia, severe, condition: Impression: PPD #7 s/p , HD #2 s/p readmission for PP HTN. BP's elevated into severe range upon presentation to the ER last night and treated with Hydralazine. Sx notable for persistent, but mild, RUTHERFORD. Also notable is hx of intermittent hyper- reflexia on exam. No edema is present on hx of PEX to suggest fluid overload. PreE labs wnl yesterday morning (including urine PCR), so labs not repeated last night. Repeat labs late this morning were stable/nml, and BP's have been wnl. - Though proteinuria is absent, there is concern that this patient meets dx of PreE with severe features based on severe HTN, persistent (though mild) RUTHERFORD, and hyper-reflexia. For that reason, I recommend start of mag sulfate x 24 hrs for seizure prophylaxis. Discussed this recommendation to patient, who was initially worried/tearful, stating she was concerned about neurologic complications. Discussed that the medication is to help decrease neurologic irritability, so we expect to see improvement in her neurologic concerns. Also, reassured patient re: safety with and course. Reviewed plan for mag checks and close monitoring to detect early findings suggestive of over-treatment and/or toxicity. Discussed common side effects and expectations, and all questions addressed. Pt verbalized agreement with the treatment plan. - Start mag sulfate with 4 gm bolus followed by 2 gm/hr infusion. - Cont labetalol 400 mg PO tid. - Cont routine PP care and support otherwise. Monitor for ability to ambulate in room/restroom use. If ambulation is unstable due to mag, plan for use of bed-rowan. - Discussed plan to continue mag x 24 hrs, then likely additional overnight observation to ensure BP remains well-controlled. Changing patient status from Observation to Inpatient admission at this time. Consider discharge late tomorrow vs 9/7 am based on clinical condition.
[2025-04-20] MEDS: MAGNESIUM SULFATE 4 GRAM 4 GM/50 ML BAG IV ONE (12:58)
[2025-04-20] MEDS: LACTATED RINGERS 1,000 ML IV SCH (13:20)
[2025-04-20] MEDS: MAGNESIUM SULFATE IN WATER 20 GM/500 ML IV.SOLN IV SCH (13:25)
[2025-04-20] MEDS: IBUPROFEN 600 MG TABLET PO PRN (17:09)
[2025-04-20] MEDS: LABETALOL 100 MG TABLET PO ONE (17:30)
[2025-04-21 05:48] LABS: HCT - HEMATOCRIT 35.9 % (37.0-47.0); HGB - HEMOGLOBIN 11.5 g/dL (12.0-16.0); MEAN PLATELET VOLUME 9.1 fL (7.9-10.8); NRBC ABSOLUTE COUNT (AUTO) 0.00 x10^3/uL; NUCLEATED RED BLOOD CELLS AUTO 0.0 /100WBC; PLT - PLATELET COUNT 315 10^3/uL (130-450); RED CELL DISTRIBUTION WIDTH 12.5 % (12.0-15.0)
[2025-04-21 06:00] LABS: ALT ALANINE AMINOTRANSFERASE 16.0 IU/L (10-60); AST ASPARTATE AMINOTRANSFERASE 9.0 IU/L (10-42); BUN - BLOOD UREA NITROGEN 14.0 mg/dL (6-20); CARBON DIOXIDE - CO2 25.0 mmol/L (21-32); CREATININE 0.8 mg/dL (0.6-1.3); GFR - MDRD 84.0 (>89)
[2025-04-21] MEDS: LABETALOL 100 MG TABLET PO SCH (09:35)
--- NOTE | 2025-04-21 15:28 | PROVIDER PROGRESS NOTE ---
Subjective Prog Note Date Prog Note Date: 04/21/25 Prog Note Time: 15:25 Subjective Pt reports feeling: Improved Subjective: HD #3 s/p admission for HTN. Mag sulfate started yesterday, and labetalol 400 mg PO tid continued. Overnight, she had an episode of lightheadedness and was hypotensive. AM labetalol dose decreased to 200 mg, and order changed to 300 mg tid. Mag was discontinued today 1300. She denies RUTHERFORD or other concerns at this time. Her is at the bedside and is , and her mother is present to help with care. Current Medications Current Medications Current Medications: Current Medications Generic Name Dose Route Start Last Admin Trade Name Freq PRN Reason Stop Dose Admin Acetaminophen 650 mg 04/20/25 09:04/21/25 09:23 Acetaminophen 325 Mg Tablet PO 650 mg Q4HR PRN Administration Pain or Fever > 38C (100.4F) Calcium Carbonate/Glycine 1,000 mg 04/19/25 22:25 Calcium Carbonate Chew 500 Mg Tablet PO Q6HR PRN Heartburn Hydralazine HCl 10 mg 04/20/25 11:57 Hydralazine Inj 20 Mg/Ml Vial IVP .ONCE PRN SBP> or= 160 OR DBP> or= 110 Hydralazine HCl 5 - 10 mg 04/20/25 11:57 Hydralazine Inj 20 Mg/Ml Vial IVP Q20M PRN SBP> or= 160 OR DBP> or= 110 Protocol Lactated Ringer's 1,000 mls @ 75 mls/hr 04/20/25 12:00 04/21/25 13:08 Lr IV Infused .[id number] MARINO Infusion Magnesium Sulfate 20 gm in 500 mls @ 50 mls/hr 04/20/25 12:00 04/21/25 13:00 Magnesium Sulf 20 G/500 Ml Bag IV 0 mls/hr .Q10H MARINO Infusion CALCIUM GLUC 1,000MG/50ML-NACL 1,000 mg in 50 mls @ 200 mls/hr 04/20/25 12:02 Calcium Gluc 1,000mg/50ml-Nacl IV PRN PRN Mag toxicity Ibuprofen 600 mg 04/20/25 07:19 04/21/25 12:27 Ibuprofen 600 Mg Tablet PO 600 mg Q6HR PRN Administration pain Labetalol HCl 20 mg 04/20/25 11:57 Labetalol 20 Mg/4 Ml Syringe IVP .ONCE PRN SBP> or= 160 OR DBP> or= 110 Labetalol HCl 20 - 80 mg 04/20/25 11:57 Labetalol 20 Mg/4 Ml Syringe IVP Q10M PRN SBP> or= 160 OR DBP> or= 110 Protocol Labetalol HCl 20 - 40 mg 04/20/25 11:57 Labetalol 20 Mg/4 Ml Syringe IVP Q10M PRN SBP> or= 160 OR DBP> or= 110 Protocol Labetalol HCl 300 mg 04/21/25 09:00 04/21/25 09:35 Labetalol 100 Mg Tablet PO 200 mg TID MARINO Administration Nifedipine 10 - 20 mg 04/20/25 11:57 Nifedipine 10 Mg Capsule PO Q20M PRN SBP> or= 160 OR DBP> or= 110 Protocol Ondansetron HCl 4 mg 04/19/25 22:25 04/19/25 23:07 Ondansetron Odt 4 Mg Tablet TL 4 mg Q4HR PRN Administration Nausea / Vomiting Sodium Chloride 10 ml 04/20/25 12:00 Sodium Chloride Flush 0.9% 10 Ml Syringe IVP Q8H MARINO Sodium Chloride 10 ml 04/20/25 11:57 Sodium Chloride Flush 0.9% 10 Ml Syringe IVP PRN PRN NEEDED PER PROVIDER ORDERS Objective Vital Signs/Intake & Output Reviewed Vital Signs: Yes Vital Signs: Vital Signs x48h Temp Pulse Resp BP Pulse Ox 04/21/25 13:00 87 16 131/86 H 04/21/25 12:31 36.8 C 79 16 111/75 93 04/21/25 10:33 78 120/82 04/21/25 09:10 77 120/81 04/21/25 09:00 36.7 C 78 15 119/83 94 04/21/25 07:45 82 15 118/80 Intake & Output: Intake & Output 04/18/25 04/19/25 04/20/25 04/21/25 23:59 23:59 23:59 23:59 Intake Total 1785 / 1785 2625 / 2625 Output Total 1400 / 1400 2350 / 2350 Balance 385 / 385 275 / 275 Weight (kg) 76 kg 76 kg General Appearance: positive No acute distress and Alert Eyes Bilateral: positive Normal inspection Neck: positive Nml inspection Respiratory: positive No respiratory distress and Breath sounds nml Cardiovascular: positive Regular rate & rhythm Abdomen: positive Non-tender Skin: positive Color nml and Warm Extremities: positive Non-tender, Full ROM and No pedal edema Neurologic/Psychiatric: positive Oriented x3 and Mood/affect nml Reflexes: Knee (R): 2+ Lab Results 04/21/25 05:40 04/21/25 05:40 Other Labs: Lab Results x24hrs 04/21/25 Range/Units 05:40 WBC 9.9 (4.8-10.8) x10^3/uL RBC 3.84 L (4.20-5.40) 10^6/uL Hgb 11.5 L (12.0-16.0) g/dL Hct 35.9 L (37.0-47.0) % MCV 93.5 (81.0-99.0) fL MCH 29.9 (27.0-31.0) pg MCHC 32.0 (32.0-36.0) g/dL RDW 12.5 (12.0-15.0) % Plt Count 315 (130-450) 10^3/uL MPV 9.1 (7.9-10.8) fL Neut # (Auto) 6.4 (1.5-6.6) 10^3/uL Lymph # (Auto) 2.3 (1.5-3.5) 10^3/uL [place] # (Auto) 0.9 (0.0-1.0) 10^3/uL Eos # (Auto) 0.2 (0.0-0.7) 10^3/uL Baso # (Auto) 0.0 (0.0-0.1) 10^3/uL Absolute Nucleated RBC 0.00 x10^3/uL Nucleated RBC % 0.0 /100WBC Sodium 135 (135-145) mmol/L Potassium 3.7 (3.5-4.5) mmol/L Chloride 105 (101-111) mmol/L Carbon Dioxide 25 (21-32) mmol/L Anion Gap 5.0 L (6-13) BUN 14 (6-20) mg/dL Creatinine 0.8 (0.6-1.3) mg/dL Estimated GFR (MDRD) 84 L (>89) Glucose 96 (74-104) mg/dL Calcium 6.8 L (8.5-10.3) mg/dL Magnesium 6.0 H* (1.7-2.3) mg/dL Total Bilirubin 0.3 (0.2-1.0) mg/dL AST 9 L (10-42) IU/L ALT 16 (10-60) IU/L Alkaline Phosphatase 76 (42-121) IU/L Total Protein 5.9 L (6.4-8.9) g/dL Albumin 3.1 L (3.2-5.5) g/dL Globulin 2.8 (2.1-4.2) g/dL Albumin/Globulin Ratio 1.1 (1.0-2.2) Assessment/Plan Problem List (1) Pre-eclampsia, severe, condition: Impression: PPD #8 s/p , HD #3 s/p readmission for PP HTN. After short episode of hypotension overnight (likely due to high-dose labetalol in conjunction with mag sulfate), BP's have been normal to mildly elevated. Repeat labs late this morning were stable/nml - Mag sulfate discontinued today at 24 hrs. - Cont labetalol at 300 mg PO tid. - Cont routine PP care and support otherwise. - Cont inpatient monitoring tonight to optimize BP control, as pressures may increase again post-mag. If doing well, plan for discharge home tomorrow morning.
[2025-04-22 08:02] VITALS: TEMP 98.6; O2SAT 98
--- NOTE | 2025-04-22 10:59 | Discharge Summary ---
"Discharge Summary Admit Date: 04/19/25 Discharge Date: 04/22/25 Discharging Provider: Dr. Lulu Izquierdo Primary Care Provider: JAME Arellano Code Status: Attempt Resuscitation Discharge Facility Name: [facility] DIAGNOSES Admission Diagnoses: hypertension Discharge Diagnoses with Status of Each Condition: preeclampsia with severe features HPI History of Present Illness: Cinthya King is a 29 yo who is PPD#6 s/p (IOL for gestational hypertension), who is being admitted from the ED for observation for blood pressure management. Cinthya was started on labetalol 100mg BID at visit on 04/17. She discussed increased blood pressures with JAME overnight the evening prior and was instructed to take additional labetalol. Cinthya was directed to the ED today, however, there was a delay due to transportation issues. Cinthya has dosed herself today approximately every 3 hours, taking a total of 800mg labetalol over the last approximately 15 hours. Reports at home, her blood pressures just kept increasing throughout the day. She did complete outpatient labs today which did not show any evidence of preeclampsia. She denies RUTHERFORD, thought she might have had a spot or two in her vision but not persistent, denies upper abdominal pain. Reports vaginal bleeding is light. Denies current CP, SOB. Denies LE swelling. Reports anxiety due to the high blood pressures. She is . In the ED, received two doses of IV hydralazine with improvement in BPs to mild range. CONSULTS | PROCEDURES Consultations: None Procedures: None HOSPITAL COURSE Hospital Course: Admission labs normal, including urine protein, so patient was initially admitted for BP mgmt only after receiving 2 doses of Hydralazine in the ER for severe-range pressures. Shortly after admission, pt reported mild, but persistent RUTHERFORD. DTRs were obtained, and pt was noted hyper-reflexic. Labetalol was started at 400 mg PO tid. Mag sulfate was initiated on HD#2 and continued for 24 hrs. BP's responded well to higher and more frequent labetalol dosing. She had an episode of hypotension during the night while on mag. Labetalol was then decreased to 300 mg tid, and she was monitored for nearly 24 hrs after mag stopped. Her BP's at that dose and at the time of discharge were 120-130s/70-80s. She had no severe BP elevations within 24 hrs of discharge. Hospital stay was otherwise uncomplicated, and she was discharged home on HD #4. ALLERGIES Allergies Allergy/AdvReac Type Severity Reaction Status Date / Time Latex, Natural Rubber Allergy Mild Itching Verified 04/19/25 21:30 MEDICATIONS Ambulatory Orders Medication Instructions Recorded Confirmed vits no.126-ferrous fum 1 tab PO DAILY 04/20/25 28 mg iron-folic acid 800 mcg tablet (Classic ) ferrous sulfate 325 mg (65 mg 325 mg PO BID #90 tabs 0 02/05/25 04/20/25 iron) tablet breast pump #1 ea 03/21/25 04/17/25 breast pump #1 ea 03/21/25 04/17/25 blood pressure monitor #1 ea 04/06/25 04/17/25 labetalol 100 mg tablet 300 mg (3 x 100 mg) PO TID # 90 tabs 04/22/25 PHYSICAL EXAM AT DISCHARGE Vital Signs: Vital Signs x48h Temp Pulse Resp BP Pulse Ox 04/22/25 09:05 138/85 H 04/22/25 08:00 37.0 C 74 16 133/81 H 98 04/22/25 04:00 36.6 C 77 16 118/66 General Appearance: No acute distress and Alert Eyes Bilateral: Normal inspection Neck: Nml inspection Respiratory: No respiratory distress and Breath sounds nml Cardiovascular: positive Regular rate & rhythm Abdomen: Non-tender Skin: Color nml and Warm Extremities: Non-tender, Full ROM and No pedal edema Neurologic/Psychiatric: Oriented x3 and Mood/affect nml Reflexes: Knee (bilat): 2+; clonus x 1 beat bilaterally LABS 04/21/25 05:40 04/21/25 05:40 QUALITY (Female Hip Fx Only) Was patient sent home on osteoporosis medication?: No FOLLOW UP Follow Up: 3 days in [facility] for BP check; please call to schedule appt TIME SPENT Time Spent in Discharge (Minutes): 25 Discharge Plan Discharge Patient Disposition: Home, Self Care Condition: Good Medically Cleared Date:: 04/22/25 Prescriptions: New labetalol 100 mg Tablet 300 mg PO TID Qty: 90 0RF Continued ferrous sulfate 325 mg (65 mg iron) tablet 325 mg PO BID Qty: 90 4RF (DME) breast pump Device See Rx Instructions .Route Qty: 1 0RF Rx Instructions: Dispense 1 standard double electric breast pump (E0603) plus accessories. ICD10- Z39.1 Length of need: 12mo (DME) breast pump Device See Rx Instructions .Route Qty: 1 0RF Rx Instructions: As directed (DME) blood pressure monitor Kit See Rx Instructions .Route Qty: 1 0RF Rx Instructions: Take blood pressure 3 times daily as directed and log values Classic 28 mg iron- 800 mcg tablet 1 tab PO DAILY Discontinued labetalol 100 mg tablet 400 mg PO TID Activity Restrictions/Additional Instructions: Cont restriction: pelvic rest x 6 wks PP, no heavy lifting/strenuous exercise x 6 wks PP Diet: Regular Print Language: [place] Patient Instructions: Understanding Preeclampsia Stand Alone Forms: PCP List Follow-up Care: Yanci Worley MD [Provider Admit Priv/Credential, Obstetrics/Gynecology] Referral Note: Please call [facility] to schedule appt for BP check on 04/25 Vitals documented within 30 minutes of discharge?: Yes"
[2025-04-22 11:15] VITALS: BP 139/90
--- NOTE | 2025-04-22 11:40 | Labor Flowsheet ---
Labor Flowsheet Datetime Report Generated by CPN: 04/22/2025 11:40 Datetime: 04/14/2025 17:55 Pulse: 94 SpO2 (%): 94 Datetime: 04/14/2025 17:54 VITAL SIGNS NBP Sys/Marisela/Mean (mmHg): 127 : 94 : 102 Datetime: 04/13/2025 18:01 Respirations: 18 Temperature Route: Oral PAIN Pain Scale: 0 Datetime: 04/13/2025 16:33 Membranes Ruptured Date/Time: 04/13/2025 08:46 Amniotic Fluid Odor: None Datetime: 04/13/2025 16:00 Stage of : Recovery Datetime: 04/13/2025 15:50 UTERINE ACTIVITY Monitor Mode: External Frequency (min): 1.5-3 Quality: Strong Duration (sec): 60 Pattern: Normal: <= 5 Contractions in 10 Minutes Resting Tone (Palpate): Relaxed ASSESSMENT A Monitor Mode: Telemetry FHR Baseline Rate : 130 FHR Baseline Changes: No Baseline Change Variability: Moderate 6-25 bpm Decelerations: Early; Variable Datetime: 04/13/2025 15:30 Accelerations: 15X15 LaborFlag: Labor Datetime: 04/13/2025 15:26 STAGE 2 Pushing Position: Pushing with Contractions Datetime: 04/13/2025 15:00 Temperature (C): 36.6 Category: Category I Datetime: 04/13/2025 14:30 Monitor Interventions for UA: [place] Adjusted Datetime: 04/13/2025 14:25 I/O Interventions: [place] Cath Inserted Datetime: 04/13/2025 13:18 PATIENT CARE Patient Position/Activity: Semi-Fowlers Datetime: 04/13/2025 13:17 ANESTHESIA Anesthesia Plans: Epidural Epidural Procedure: Test Dose Datetime: 04/13/2025 13:13 PROCEDURE TIME OUT Procedure Verify: Correct Patient Identity; Correct Side and Site are Marked; Accurate Procedure Consent Form; Agreement on Procedure to be Done; Correct Patient Position; Relevant Images and Results are Properly Labeled and Displayed; Addressed Need to Administer Antibiotics or Fluids for Irrigation; Safety Precautions Based on Patient History or Medication Use Epidural Positioning: Sitting Anesthesia Comments: procedure start Datetime: 04/13/2025 13:08 Patient Care Comments: pt sitting up for epidural placement Datetime: 04/13/2025 12:47 VAGINAL EXAM Dilatation (cm): 6.0 Effacement (%): 80 Station: -2 Exam by: Rachna Do CNM Datetime: 04/13/2025 12:00 Contraction Comments: occasional doubling/tripling Datetime: 04/13/2025 09:55 Pain Type: Contraction Pain Location: Abdomen Comfort Measures: Breathing/Relaxation Datetime: 04/13/2025 09:10 Monitor Interventions for FHR: Ultrasound Adjusted COMMUNICATION Communication: RN at Bedside; RN Reviewed Strip Datetime: 04/13/2025 09:05 Comments: Audible maternal tracing. Patient sitting on toilet as she doesn't like the sensation of a pad wet w/ amniotic fluid. Datetime: 04/13/2025 08:46 Membrane Status: Ruptured Membranes Rupture Method: Artificial Amniotic Fluid Color: Clear Amniotic Fluid Amount: Moderate Datetime: 04/13/2025 07:26 Pain Presence: Intermittent Datetime: 04/13/2025 01:54 MEDICATIONS Cervical Ripening Agents: Cytotec @ Datetime: 04/13/2025 01:48 Cervix, Consistency: Soft Cervix, Position: Midposition Vaginal Exam Comments: unchanged Datetime: 04/12/2025 20:45 Communication Comments: provider @bedside signing consents and discussing POC Datetime: 04/12/2025 20:20 MATERNAL ASSESSMENT Level of Consciousness: Alert Headache: Denies Nausea/Vomiting: Denies RUQ Epigastric Pain: Denies
== END 2025-04-22 11:20 | disposition home or self-care (01) | DRG 776 ==
LOC: MS3 21:19 → ED 21:19 → MS3 23:46 → FBP 04-20 00:16
PROVIDERS: ADMIT Obstetrics & Gynecology; ATTEND Obstetrics & Gynecology

== ENCOUNTER 2025-04-23 15:41 | Observation (INO) ==
[2025-04-23] MEDS ORDERED: ACETAMINOPHEN 325 MG TABLET PO PRN (16:12)
[2025-04-23] MEDS ORDERED: LABETALOL 20 MG/4 ML SYRINGE IVP PRN ×3 (16:12)
[2025-04-23] MEDS ORDERED: hydrALAZINE INJ 20 MG/ML VIAL IVP PRN ×2 (16:12)
[2025-04-23 16:32] LABS: HCT - HEMATOCRIT 38.3 % (37.0-47.0); HGB - HEMOGLOBIN 12.8 g/dL (12.0-16.0); MEAN PLATELET VOLUME 9.3 fL (7.9-10.8); NRBC ABSOLUTE COUNT (AUTO) 0.00 x10^3/uL; NUCLEATED RED BLOOD CELLS AUTO 0.0 /100WBC; PLT - PLATELET COUNT 424 10^3/uL (130-450); RED CELL DISTRIBUTION WIDTH 12.2 % (12.0-15.0)
[2025-04-23 16:47] LABS: ALT ALANINE AMINOTRANSFERASE 18.0 IU/L (10-60); AST ASPARTATE AMINOTRANSFERASE 16.0 IU/L (10-42); BUN - BLOOD UREA NITROGEN 16.0 mg/dL (6-20); CARBON DIOXIDE - CO2 26.0 mmol/L (21-32); CREATININE 0.7 mg/dL (0.6-1.3); GFR - MDRD 98.0 (>89)
[2025-04-23] MEDS: NIFEdipine ER 30 MG TABLET PO SCH (17:00)
--- NOTE | 2025-04-23 18:14 | PHARMACY PROGRESS NOTE ---
Best Possible Medication History Admit Date and Time: 04/23/25 [id number] Home Medications Medication Instructions Recorded Confirmed Type vits no.126-ferrous fum 1 tab PO DAILY 04/23/25 History 28 mg iron-folic acid 800 mcg tablet (Classic ) ferrous sulfate 325 mg (65 mg 325 mg PO BID #90 tabs 0 02/05/25 04/23/25 Rx iron) tablet breast pump #1 ea 03/21/25 04/17/25 Rx breast pump #1 ea 03/21/25 04/17/25 Rx blood pressure monitor #1 ea 04/06/25 04/17/25 Rx labetalol 100 mg tablet 400 mg PO TID 04/23/2504/23 History Processed by: Nursing Medications reviewed in ED?: No Medication History completed: Yes Secondary Source(s): Insurance records and Previous admit records (medication reconciliation completed by pharmacy a few days ago. confirmed meds with nursing) [facility] Statement: As the person ultimately responsible for medication therapy, providers are able to order a medication from an existing home medication list in [facility] via the "Reconcile Routine" prior to Confirmation of that medication by program support assistant. Such practice is discouraged except when the physician, in their clinical judgment, deems that a medical need exists for a medication without regard to previous use.
--- NOTE | 2025-04-23 19:57 | HISTORY & PHYSICAL EXAMINATION ---
History of Present Illness History of Present Illness HPI Comment/Other: Patient is a 29-year-old G2, P2 status post spontaneous vaginal delivery on 04/13/2025. She was readmitted for preeclampsia with severe features and discharged yesterday. She came for blood pressure check in clinic this morning, and did not have significant elevated blood pressures. When she went to [employer] coordinator this afternoon it was more elevated and return to clinic. As it was still under there, she was advised to come back to labor and delivery for assessment. She denies symptoms of preeclampsia with no headache, change in vision, right upper quadrant pain. She feels overall normal. Meds/Allgy Home Medications Ambulatory Orders Medication Instructions Recorded Confirmed vits no.[id number]-ferrous fum 1 tab PO DAILY 04/23/25 28 mg iron-folic acid 800 mcg tablet (Classic ) ferrous sulfate 325 mg (65 mg 325 mg PO BID #90 tabs 0 02/05/25 04/23/25 iron) tablet breast pump #1 ea 03/21/25 04/17/25 breast pump #1 ea 03/21/25 04/17/25 blood pressure monitor #1 ea 04/06/25 04/17/25 labetalol 100 mg tablet 400 mg PO TID 04/23/2504/23 Allergies Allergies Allergy/AdvReac Type Severity Reaction Status Date / Time Latex, Natural Rubber Allergy Mild Itching Verified 04/23/25 11:55 PFSH Active Problems All Active Problems (Updated 04/23/25 @ 19:54 by Craig Cunningham MD) care and examination of lactating mother (Acute) Pre-eclampsia, severe, condition (Acute) Hypertension, condition or complication (Acute) Gestational hypertension affecting second (Acute) Medical History Medical History (Updated 04/23/25 @ 19:54 by Craig Cunningham MD) Positive test Supervision of normal Elevated blood pressure reading in office without diagnosis of hypertension History of induced hypertension screening for streptococcus B Surgical History Surgical History H/O colposcopy with cervical biopsy Family History Family History (Updated 09/14/24 @ 10:46 by Lani Fishman RN) Father Alcoholism Uncle Alcoholism Mother High blood pressure Social History Social History (Updated 04/07/25 @ 12:19 by Allyn Alvarado CNM, SENIOR CARE ASSISTANT) Smoking Status: Never smoker Second hand tobacco smoke exposure: Yes Do you dip or chew tobacco?: No Do you vape?: No Patient requests smoking cessation consult: No Initiate information on smoking cessation: No Do you feel safe in your home environment?: Yes History of physical, verbal, emotional, or financial abuse?: No Substance Use: cannabis (any form) Substance Use Details: stopped for POLST Patient has POLST: No Exam Exam Vital Signs: Vital Signs x48h Temp Pulse Resp BP Pulse Ox 04/23/25 19:30 130/83 04/23/25 19:00 115/72 04/23/25 18:38 124/84 04/23/25 18:00 119/82 04/23/25 17:30 113/82 04/23/25 17:15 126/83 04/23/25 17:00 118/73 04/23/25 16:45 111/75 04/23/25 16:30 111/75 04/23/25 16:20 36.8 C 97 18 134/89 H 98 04/23/25 16:15 108/70 04/23/25 16:00 109/74 Constitutional: alert, no acute distress, well hydrated, well developed, well nourished, appropriate dress. Cardiovascular: Regular rate and rhythm. Respiratory: no respiratory distress. Clear to auscultation bilaterally Abdomen: nondistended, nontender, no guarding. Neuro: 1+ DTRs, no clonus Psych: affect and mood appropriate, normal interaction, good eye contact. Conclusion/Plan Problem List (1) Pre-eclampsia, severe, condition: Plan: On arrival, blood pressures were not severe and has not required acute antihypertensive treatment. Will admit for observation. Labs were not concerning for preeclampsia. No signs symptoms of severe preeclampsia. Plan admit for observation and adjust outpatient therapy. If she requires no additional antihypertensive acutely, we will consider long-acting nifedipine or increased dose of her labetalol. It seems as though she is decreasing effectiveness the last hour of her dose. If this is the case, she may benefit from adding nifedipine to her daily regimen. (2) Hypertension, condition or complication: Plan: As above (3) care and examination of lactating mother: Plan: Routine breast feeding support Lab Results 04/23/25 16:20 04/23/25 16:20
[2025-04-23] MEDS: LABETALOL 100 MG TABLET PO SCH (23:02)
[2025-04-23] MEDS: FERROUS SULFATE 325 MG TABLET PO SCH (23:03)
--- NOTE | 2025-04-24 07:20 | Discharge Summary ---
Discharge Summary Admit Date: 04/23/25 Discharge Date: 04/24/25 Discharging Provider: Craig Cunningham MD DIAGNOSES Admission Diagnoses: Preeclampsia with severe features Discharge Diagnoses with Status of Each Condition: Preeclampsia with severe features HPI History of Present Illness: HPI: No acute events overnight. No treatments of her blood pressure. Can continue labetalol for 100 mg 3 times daily Denies headache, change in vision, right upper quadrant pain. Physical Exam Constitutional: alert, no acute distress, well hydrated, well developed, well nourished, appropriate dress. Cardiovascular: Regular rate and rhythm. Respiratory: no respiratory distress. Clear to auscultation bilaterally Abdomen: nondistended, nontender, no guarding. Neuro: 1+ DTRs, no clonus Psych: affect and mood appropriate, normal interaction, good eye contact. 1. Preeclampsia severe features -Continue magnesium sulfate for 24 hours -Labs every [ ] HOSPITAL COURSE Hospital Course: Patient is a 29-year-old G2, P2 status post spontaneous vaginal delivery on 04/13/2025. She was readmitted with preeclampsia severe features then discharged home. She presenting in yesterday with elevated blood pressure in clinic and was sent for observation. Overnight, she had no elevations in blood pressure and did not require acute antihypertensive. Labs remain normal. She was discharged the following day in stable condition. ALLERGIES Allergies Allergy/AdvReac Type Severity Reaction Status Date / Time Latex, Natural Rubber Allergy Mild Itching Verified 04/23/25 11:55 MEDICATIONS Ambulatory Orders Medication Instructions Recorded Confirmed vits no.126-ferrous fum 1 tab PO DAILY 04/23/25 28 mg iron-folic acid 800 mcg tablet (Classic ) ferrous sulfate 325 mg (65 mg 325 mg PO BID #90 tabs 0 02/05/25 04/23/25 iron) tablet breast pump #1 ea 03/21/25 04/17/25 breast pump #1 ea 03/21/25 04/17/25 blood pressure monitor #1 ea 04/06/25 04/17/25 labetalol 100 mg tablet 400 mg PO TID 04/23/2504/23 PHYSICAL EXAM AT DISCHARGE Vital Signs: Vital Signs x48h Temp Pulse Resp BP Pulse Ox 04/24/25 09:08 36.7 C 68 16 103/84 97 04/24/25 07:50 36.7 C 88 16 130/90 99 LABS 04/23/25 16:20 04/23/25 16:20 FOLLOW UP Follow Up: With [facility] in 2 to 3 days TIME SPENT Time Spent in Discharge (Minutes): 30 Discharge Plan Discharge Patient Disposition: 01 Home, Self Care Prescriptions: Continued ferrous sulfate 325 mg (65 mg iron) tablet 325 mg PO BID Qty: 90 4RF (DME) breast pump Device See Rx Instructions .Route Qty: 1 0RF Rx Instructions: Dispense 1 standard double electric breast pump (E0603) plus accessories. ICD10- Z39.1 Length of need: 12mo (DME) breast pump Device See Rx Instructions .Route Qty: 1 0RF Rx Instructions: As directed (DME) blood pressure monitor Kit See Rx Instructions .Route Qty: 1 0RF Rx Instructions: Take blood pressure 3 times daily as directed and log values labetalol 100 mg tablet 400 mg PO TID Classic 28 mg iron- 800 mcg tablet 1 tab PO DAILY Diet: Regular Print Language: [place] Patient Instructions: Understanding Preeclampsia Follow-up Care: Craig Cunningham MD [Provider Admit Priv/Credential, Obstetrics/Gynecology] Vitals documented within 30 minutes of discharge?: Yes (TEMP. 37.1 HR 80 O2 97 BP 114/86)
[2025-04-24] MEDS: PRENATAL VITAMIN TABLET PO SCH (07:40)
[2025-04-24 07:51] VITALS: TEMP 98.1
[2025-04-24 09:09] VITALS: BP 103/84; O2SAT 97
== END 2025-04-24 09:34 | disposition home or self-care (01) ==
LOC: WFO 15:41 → FBP 15:41
PROVIDERS: ADMIT Obstetrics & Gynecology; ATTEND Obstetrics & Gynecology
DX: O14.15 Severe pre-eclampsia, complicating the puerperium